=== PATIENT | male | born 1965 | race Caucasian/White ===

== ENCOUNTER 2018-10-16 15:49 | Emergency (ER) | payer SELFPAY ==
[~2018-10-16] VITALS: Ht 185.4 cm; Wt 85.0 kg
[2018-10-16 15:55] VITALS: Ht 185.4 cm; Wt 85.0 kg
[2018-10-16 16:32] VITALS: BP 126/79; PULSE 65; RESP 18
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
== END 2018-10-16 17:04 | disposition home or self-care (01) ==
LOC: E/R 15:49
DX: S09.90XA Unspecified injury of head, initial encounter (principal); R40.2412 Glasgow coma scale score 13-15, at arrival to emergency department; V17.4XXA Pedal cycle driver injured in collision with fixed or stationary object in traffic accident, initial encounter
CPT/HCPCS: 99283